=== PATIENT | male | born 1990 | race Two or more races ===

== ENCOUNTER 2019-06-16 07:55 | Emergency (ER) | payer MEDICAID, OTHER ==
[~2019-06-16] VITALS: Ht 172.7 cm; Wt 90.9 kg
[2019-06-16 08:08] VITALS: BP 128/70
[2019-06-16] MEDS ORDERED: IBUP-1984 PO (08:12)
[2019-06-16] MEDS ORDERED: HYDR-4383 PO (08:20)
[2019-06-16] MEDS ORDERED: AMOX-422 PO (08:20)
== END 2019-06-16 08:48 | disposition home or self-care (01) ==
LOC: ER 07:56
DX: K04.7 Periapical abscess without sinus (principal)
CPT/HCPCS: 99283